=== PATIENT | male | born 1965 | race Caucasian/White ===

== ENCOUNTER 2016-03-24 12:26 | Outpatient (CLI) | payer OTHER | END 2016-03-24 12:27 | disposition home or self-care (01) | DX: M25.521 Pain in right elbow (principal); R22.31 Localized swelling, mass and lump, right upper limb ==

== ENCOUNTER 2017-03-27 09:54 | Outpatient (CLI) | payer OTHER ==
--- NOTE | 2017-03-27 19:34 | XRAY Report ---
DATE OF SERVICE: 03/27/2017 BILATERAL TWO VIEW WRISTS: 03/27/2017 CLINICAL INDICATION: Bilateral wrist pain. Frontal and lateral views of the bilateral wrists demonstrate no evidence of fracture or dislocation. The joint spaces are preserved. No foreign body is seen in the soft tissues. IMPRESSION: Normal bilateral wrists. TD: 03/27/2017 20:31
--- NOTE | 2017-03-27 19:34 | XRAY Report ---
DATE OF SERVICE: 03/27/2017 THREE VIEW CERVICAL SPINE: 03/27/2017 CLINICAL INDICATION: Neck pain. COMPARISON: 03/11/2011 AP, lateral, odontoid views of the cervical spine demonstrate progression of degenerative disk disease, now moderate at C5-6. There is no evidence of interval fracture or subluxation. The prevertebral soft tissues are unremarkable. IMPRESSION: Moderate degenerative changes at C5-6. TD: 03/27/2017 20:30
== END 2017-03-27 09:55 | disposition home or self-care (01) ==
LOC: DI 09:54
PROVIDERS: ATTEND Physician Assistant Medical
DX: M50.322 Other cervical disc degeneration at C5-C6 level (principal); M25.531 Pain in right wrist; M25.532 Pain in left wrist
CPT/HCPCS: 72040

== ENCOUNTER 2017-04-10 08:00 | Outpatient (CLI) | payer OTHER ==
[2017-04-10 13:21] LABS: ALBUMIN 4.2 g/dL (3.2-5.5); ALBUMIN/GLOBULIN RATIO 1.4 (1.0-2.2); ALKALINE PHOSPHATASE 62 IU/L (42-121); ALT ALANINE AMINOTRANSFERASE 21 IU/L (10-60); AST ASPARTATE AMINOTRANSFERASE 23 IU/L (10-42); BILIRUBIN,TOTAL 0.3 mg/dL (0.2-1.0); BUN - BLOOD UREA NITROGEN 17 mg/dL (6-20); CALCIUM 9.2 mg/dL (8.5-10.3); CARBON DIOXIDE - CO2 24 mmol/L (21-32); CHLORIDE 103 mmol/L (101-111); CHOL/HDL RATIO 4.5 (<5.0); CHOLESTEROL 216 mg/dL; CREATININE 0.9 mg/dL (0.6-1.2); GFR - MDRD 89 (>89); GLUCOSE 107 mg/dL (70-100); HDL CHOLESTEROL 48 mg/dL; LDL CHOLESTEROL,CALCULATED 156 mg/dL; LDL/HDL RATIO 3.3 (<3.6); SODIUM 138 mmol/L (135-145); TOTAL PROTEIN 7.3 g/dL (6.7-8.2); VLDL CHOLESTEROL 12 mg/dL
[2017-04-10 14:14] LABS: BASOPHILS % (AUTO) 0.3 %; EOSINOPHILS # (AUTO) 0.2 10^3/uL (0.0-0.7); EOSINOPHILS % (AUTO) 2.2 %; HGB - HEMOGLOBIN 16.1 g/dL (14.0-18.0); LYMPHOCYTES # (AUTO) 2.4 10^3/uL (1.5-3.5); LYMPHOCYTES % (AUTO) 34.9 %; MEAN CORPUSCULAR HEMOGLOBIN 30.7 pg (27.0-31.0); MEAN CORPUSCULAR HGB CONC 33.4 g/dL (32.0-36.0); MEAN CORPUSCULAR VOLUME 91.8 fL (80.0-94.0); MEAN PLATELET VOLUME 8.2 fL (7.4-11.4); MONOCYTES # (AUTO) 0.6 10^3/uL (0.0-1.0); MONOCYTES % (AUTO) 8.4 %; NEUTROPHILS # (AUTO) 3.8 10^3/uL (1.5-6.6); NEUTROPHILS % (AUTO) 54.2 %; PLT - PLATELET COUNT 306 10^3/uL (130-450); RED BLOOD COUNT 5.25 10^6/uL (4.70-6.10); RED CELL DISTRIBUTION WIDTH 13.3 % (12.0-15.0)
== END 2017-04-10 08:01 | disposition home or self-care (01) ==
LOC: LAB.R 08:00
PROVIDERS: ATTEND Physician Assistant Medical
DX: Z00.00 Encounter for general adult medical examination without abnormal findings (principal); Z12.5 Encounter for screening for malignant neoplasm of prostate
CPT/HCPCS: 80053; 80061; 83721; 84153; 84443; 85025

== ENCOUNTER 2017-04-18 16:05 | Outpatient (CLI) | payer OTHER ==
--- NOTE | 2017-04-19 09:25 | XRAY Report ---
TWO VIEW CHEST: 04/18/2017 CLINICAL INDICATION: Cough, tobacco abuse. COMPARISON: 06/17/2008. FINDINGS: Frontal and lateral views of the chest demonstrate a normal cardiac silhouette. The lungs are hyperinflated, but clear. No effusion or pneumothorax is present. IMPRESSION: HYPERINFLATION, BUT NO EVIDENCE OF ACUTE CARDIOPULMONARY DISEASE. TD: 04/19/2017 09:25
== END 2017-04-18 16:06 | disposition home or self-care (01) ==
LOC: DI 16:05
PROVIDERS: ATTEND Physician Assistant Medical
DX: R05 Cough (principal); F17.200 Nicotine dependence, unspecified, uncomplicated
CPT/HCPCS: 71046

== ENCOUNTER 2017-05-04 13:11 | Outpatient (CLI) | payer OTHER ==
[2017-05-04] MEDS ORDERED: ALBUTEROL NEB 2.5 MG/3 ML INH PRN (15:47)
== END 2017-05-04 13:12 | disposition home or self-care (01) ==
LOC: RT 13:11
PROVIDERS: ATTEND Physician Assistant Medical
DX: J44.9 Chronic obstructive pulmonary disease, unspecified (principal); F17.200 Nicotine dependence, unspecified, uncomplicated
CPT/HCPCS: 94060; 94729; J7613

== ENCOUNTER 2017-06-26 12:38 | Day surgery (SDC) | payer OTHER ==
[2017-06-26] MEDS: LACTATED RINGERS 1,000 ML IV ONE (12:42)
[2017-06-26] MEDS ORDERED: fentaNYL 250 MCG/5 ML VIAL IVP ONE (14:30)
[2017-06-26] MEDS ORDERED: MIDAZOLAM 2 MG/2 ML VIAL IVP ONE (14:30)
[2017-06-26 14:53] VITALS: BP 117/68
== END 2017-06-26 12:39 | disposition home or self-care (01) ==
LOC: SDS 12:38
PROVIDERS: ATTEND Surgery
PROC: 0DJD8ZZ Inspection of Lower Intestinal Tract, Via Natural or Artificial Opening Endoscopic (ICD-10-PCS; principal; 2017-06-26 13:45)
DX: Z12.11 Encounter for screening for malignant neoplasm of colon (principal); F17.210 Nicotine dependence, cigarettes, uncomplicated
CPT/HCPCS: 45378; J3010; J7120

== ENCOUNTER 2022-03-13 10:04 | Outpatient (CLI) | payer BC ==
--- NOTE | 2022-03-13 16:18 | XRAY Report ---
PROCEDURE: Shoulder 2 View RT INDICATIONS: PAIN IN RIGHT SHOULDER TECHNIQUE: 2 views of the shoulder were acquired. COMPARISON: None. FINDINGS: Bones: No fractures or dislocations. No suspicious bony lesions. Visualized ribs appear intact. M ild articular osteophyte formation at the acromioclavicular and glenohumeral joints. Soft tissues: No suspicious soft tissue calcifications. IMPRESSION: Osteoarthritis. No acute fracture. No osseous lesion. If symptoms and/or clinical suspic ion for pathology continue, further assessment with repeat plain films, or advanced imaging (e.g., CT , MRI, or bone scan) is recommended for further assessment. Reviewed by: Carmelita Shaffer MD on 03/13/2022 4:16 PM PST Approved by: Carmelita Shaffer MD on 03/13/2022 4:16 PM PST Station ID: [id number]
== END 2022-03-13 10:05 | disposition home or self-care (01) ==
LOC: DI 10:04
PROVIDERS: ATTEND Physician Assistant
DX: M19.011 Primary osteoarthritis, right shoulder (principal)

== ENCOUNTER 2022-12-15 11:54 | Outpatient (CLI) | payer BC ==
--- NOTE | 2022-12-15 13:45 | XRAY Report ---
PROCEDURE: Lumbar Spine 2 View INDICATIONS: SCIATICA TECHNIQUE: 3 views of the lumbar spine were acquired. COMPARISON: None. FINDINGS: Bones: 5 [id number] vertebrae are present. There is normal bony alignment. No vertebral body compression fractures. No suspicious bony lesions. Moderate disc height loss at all levels. Soft tissues: Overlying bowel gas pattern is normal. No suspicious soft tissue calcifications. IMPRESSION: Moderate, multilevel degenerative disease. Reviewed by: Rajeev Sparks on 12/15/2022 1:44 PM PDT Approved by: Rajeev Sparks on 12/15/2022 1:44 PM PDT Station ID: [id number]
== END 2022-12-15 11:55 | disposition home or self-care (01) ==
LOC: DI 11:54
PROVIDERS: ATTEND Specialist
DX: M47.816 Spondylosis without myelopathy or radiculopathy, lumbar region (principal)

== ENCOUNTER 2022-12-22 11:41 | Outpatient (CLI) | payer BC ==
--- NOTE | 2022-12-22 12:12 | XRAY Report ---
PROCEDURE: Hip w/Pelvis 2-3V RT INDICATIONS: SCIATICA RIGHT TECHNIQUE: AP pelvis with lateral view(s) of the right hip(s). COMPARISON: None. FINDINGS: Bones: No fractures or dislocations. No suspicious bony lesions. Nonuniform joint space narrowing without significant osteophytosis. Soft tissues: No suspicious soft tissue calcifications or masses. IMPRESSION: No acute bony abnormality. Minimal hip osteoarthritis. Reviewed by: Rajeev Sparks on 12/22/2022 12:10 PM PDT Approved by: Rajeev Sparks on 12/22/2022 12:10 PM PDT Station ID: [id number]
== END 2022-12-22 11:42 | disposition home or self-care (01) ==
LOC: DI 11:41
PROVIDERS: ATTEND Nurse Practitioner Family
DX: M54.31 Sciatica, right side (principal); M16.11 Unilateral primary osteoarthritis, right hip

== ENCOUNTER 2023-10-24 07:20 | Outpatient (CLI) | payer BC ==
--- NOTE | 2023-10-24 13:00 | CT Report ---
PROCEDURE: Lung Cancer Screen INDICATIONS: CURRENT TOBACCO USER TECHNIQUE: A CT scan of the chest was performed. Intravenous contrast media was not administered. Images were re corded and evaluated at appropriate window settings. Reformats: axial MIP of the chest, coronal and s agittal. For radiation dose reduction, the following was used: automated exposure control, adjustment of mA and/or kV according to patient size. COMPARISON: Chest radiograph dated 04/18/2017. FINDINGS: Image quality: Diagnostic. Lungs and pleura: No pleural effusions. No pneumothorax. Mild upper lobe predominant pulmonary emphy sematous changes. Partially calcified pulmonary nodule noted in the right lower lobe measuring 3 mm ( 79/series 4) and 4 mm (89/series 4). Fissural-based nodule versus intrafissural lymph node visualized in the anterior right fissure (76/series 4). Overall, no suspicious pulmonary nodules. Mediastinum: Heart size is normal. No pericardial effusion. No large vessel abnormality. No mediastin al adenopathy by size criteria. Atherosclerosis. Chest wall and lower neck: Thyroid is unremarkable. No axillary or supraclavicular adenopathy by size . Bones: No aggressive osseous abnormality. No acute compression fractures. Upper Abdomen: Unremarkable. IMPRESSION: Partially calcified right lower lobe pulmonary nodules measuring up to 4 mm. Mild upper lobe predominant pulmonary emphysematous changes. Mild coronary artery atherosclerotic calcifications. Lung RAD: 2 - Benign. Recommendation: Continue annual screening in 12 Months with LDCT Non-Lung Significant Findings: None. Reviewed by: Cr Nava MD on 10/24/2023 12:59 PM PDT Approved by: Cr Nava MD on 10/24/2023 12:59 PM PDT Station ID: [id number]
== END 2023-10-24 07:21 | disposition home or self-care (01) ==
LOC: DI 07:20
PROVIDERS: ATTEND Registered Nurse
DX: Z12.2 Encounter for screening for malignant neoplasm of respiratory organs (principal); F17.210 Nicotine dependence, cigarettes, uncomplicated; R91.8 Other nonspecific abnormal finding of lung field; I25.10 Atherosclerotic heart disease of native coronary artery without angina pectoris; J43.9 Emphysema, unspecified